=== PATIENT | female | born 1935 | race Caucasian/White ===

== ENCOUNTER 2017-02-16 23:05 | Inpatient (IN) | payer OTHER ==
[~2017-02-16] VITALS: Ht 172.7 cm; Wt 56.7 kg
--- NOTE | ~2017-02-16 | H ---
[facility] [place] [address] HISTORY AND PHYSICAL Name: TANO MORALES Room #: 411-P [facility]..#: [id number] Admission: 02/17/17 Attend Phys: Kee Mcdowell MD Discharge: Date of : 31 Report #: [id number] THIS REPORT FOR: //name// CC: Luis Mcdowell DATE OF SERVICE: 02/17/2017 CHIEF COMPLAINT: Fall and weakness. HISTORY OF PRESENT ILLNESS: The patient is an 81-year-old female who presented to the emergency room in the middle of the night with unwitnessed fall at her assisted living facility and apparently she had fell some time earlier yesterday, but the events are really unclear. The staff did not witness this, but the patient remember and then falling to the ground. She was then complaining of pain in her legs and inability to walk. She was brought to the emergency room late last night. PAST MEDICAL HISTORY: Senile dementia, history of a pacemaker, and B12 deficiency. PAST SURGICAL HISTORY: Cholecystectomy and hysterectomy. FAMILY HISTORY: Noncontributory. SOCIAL HISTORY: No chronic alcohol or tobacco use. ALLERGIES: CODEINE. MEDICATIONS: None. REVIEW OF SYSTEMS: She denies headache, chest pain, shortness of breath, abdominal pain, nausea, vomiting, diarrhea, constipation, dysuria, or syncope. OBJECTIVE: VITAL SIGNS: Temperature 36.7, pulse 90, respirations 18, and blood pressure 136/52. GENERAL: She is awake and alert, lying in bed, in no distress. HEAD AND NECK: Unremarkable. LUNGS: Clear. HEART: Regular. ABDOMEN: Soft, normoactive bowel sounds. EXTREMITIES: No edema. NEUROLOGIC: Global strength 4/[address] of the pelvis reveals a fracture of the inferior pubic ramus on the left, [facility] [address] [place] [address] HISTORY AND PHYSICAL Name: TANO MORALES Room #: 411-P [facility].#: [id number] Admission: 02/17/17 Attend Phys: Kee Mcdowell MD Discharge: Date of : 31 Report #: [id number] there appears to be a chronic L4 vertebral compression fracture. ASSESSMENT: 1. Acute left ramus pelvic fracture. 2. Chronic L4 vertebral compression fracture. 3. Senile dementia of Alzheimer's type. 4. Gait disturbance. 5. Senile debility. PLAN: She is admitted for pain control and we will begin physical therapy, Lovenox DVT prophylaxis until she is mobile. Social work to look into [facility] option. <ELECTRONICALLY SIGNED> By: Huber Hickman MD 02/18/17 [id number] [id number] Huber Hickman MD /nt
--- NOTE | ~2017-02-16 | D ---
[facility] [place] [address] DISCHARGE SUMMARY Name: TANO MORALES Room #: 411-P [facility]#: [id number] Admission: 02/17/17 Attend Phys: Kee Mcdowell MD Discharge: 02/20/17 Date of : 31 Report #: [id number] THIS REPORT FOR: //name// CC: Luis Mcdowell FINAL DIAGNOSES: 1. Pelvic fracture. 2. Senile dementia. HOSPITAL COURSE: The patient was admitted from home with a fall. X-ray studies revealed a pelvic fracture. She was treated conservatively. She is pleasantly confused at her baseline during her stay. Social work managed with her family appropriate placement as she was not able to return to her assisted living facility due to confusion. She participated with physical therapy, medically she had no other complications. PHYSICAL EXAMINATION: GENERAL: On the day of discharge, she was awake and alert, in no distress. VITAL SIGNS: Stable. LUNGS: Clear. HEART: Regular. ABDOMEN: Soft, normoactive bowel sounds. EXTREMITIES: No edema. DISPOSITION: Be transferred to [facility]. Follow up with Dr. Frias in 6 weeks. Diet and activity as tolerated. PT, OT, medicines are Tylenol and tramadol. <ELECTRONICALLY SIGNED> By: Huber Hickman MD 02/21/17 1018 [id number] Huber Hickman MD /juany
[~2017-02-16 23:05] MED LIST: ADULT LOW DOSE81 MG PO; ARICEPT 5 MG TAB5 MG PO; B12INJ IM; CALCIUM 500 +1 EAC5 PO; CALCIUM500 MG PO; GLUCOSAMIN-CHO1 EACH PO; GLUCOSAMINE1000 MG PO; LOVASTAT40; LOVASTAT40 PO; NORCO 5-325 TA1 EACH PO; OMEPRAZOLE 20 M20 M1 PO; ONDANSETRON HCL4 M2 PO; TYLENOL EXTRA500 MG PO; VITAMIN D-32000 UNIT PO; VITAMINC500 PO; XANAX 0.25 MG0.25 MG PO; ZOFRAN ODT4 MG PO
[2017-02-16 23:15] VITALS: BP 104/59
[2017-02-17 03:14] VITALS: BP 140/71
[2017-02-17 07:45] VITALS: BP 136/52
[2017-02-17 19:41] VITALS: BP 109/52
[2017-02-18 04:28] VITALS: BP 118/74
[2017-02-18 05:31] LABS: HEMATOCRIT 38.3 % (37.0-47.0); MCH 31.1 pg (26.0-34.0); MCHC 33.9 g/dL (28.0-37.0); MCV 91.9 fL (80.0-100.0); RBC 4.17 mil/uL (4.20-5.00); RDW 13.7 % (10.5-14.5); WBC 5.3 thou/uL (4.0-11.0)
[2017-02-18 05:43] LABS: CALCIUM 8.8 mg/dL (8.5-10.1); CREATININE 0.6 mg/dL (0.6-1.0); POTASSIUM 3.9 mmol/L (3.5-5.1)
[2017-02-18 20:07] VITALS: BP 116/60
[2017-02-19 05:40] VITALS: BP 128/59
[2017-02-19 08:23] VITALS: BP 117/68
[2017-02-19 16:00] VITALS: BP 124/52
[2017-02-19 20:07] VITALS: BP 116/46
[2017-02-20 04:29] VITALS: BP 121/70
[2017-02-20 08:12] VITALS: BP 121/66
[2017-02-20] MEDS ORDERED: TRAMADOL 50 MG50 MG PO (10:09)
[2017-02-20] MEDS ORDERED: ACETAMINOPHEN325 M1 PO (10:10)
== END 2017-02-20 11:56 | DRG 536 ==
LOC: ER 23:05 → 4N 02-17 02:37 → EROBS 02-17 02:37 → 4N 02-17 03:16
PROVIDERS: Internal Medicine Geriatric Medicine
DX: S32.592A Other specified fracture of left pubis, initial encounter for closed fracture (principal); G30.1 Alzheimer's disease with late onset; F02.80 Dementia in other diseases classified elsewhere, unspecified severity, without behavioral disturbance, psychotic disturbance, mood disturbance, and anxiety; R26.9 Unspecified abnormalities of gait and mobility; W19.XXXA Unspecified fall, initial encounter; E78.5 Hyperlipidemia, unspecified; F41.9 Anxiety disorder, unspecified; I49.5 Sick sinus syndrome; K59.00 Constipation, unspecified; Y93.89 Activity, other specified; Y92.89 Other specified places as the place of occurrence of the external cause; Z88.8 Allergy status to other drugs, medicaments and biological substances; Z95.0 Presence of cardiac pacemaker; Z90.49 Acquired absence of other specified parts of digestive tract; Z90.710 Acquired absence of both cervix and uterus; Y99.8 Other external cause status; Z86.711 Personal history of pulmonary embolism

== ENCOUNTER → 2019-09-17 | Outpatient (CLI) | payer OTHER ==
[~2019-09-17] MED LIST changes: +ACETAMINOPHEN325 M1 PO; +TRAMADOL 50 MG50 MG PO
== END ==
LOC: SJCVC 14:05
DX: R94.31 Abnormal electrocardiogram [ECG] [EKG] (principal); I45.9 Conduction disorder, unspecified; I49.5 Sick sinus syndrome; E78.5 Hyperlipidemia, unspecified; Z95.0 Presence of cardiac pacemaker

== ENCOUNTER → 2020-08-15 | Outpatient (CLI) | payer OTHER | LOC: SJCVC 14:03 | PROVIDERS: ATTEND Internal Medicine | DX: I44.0 Atrioventricular block, first degree (principal); I45.9 Conduction disorder, unspecified; E78.5 Hyperlipidemia, unspecified; F03.90 Unspecified dementia, unspecified severity, without behavioral disturbance, psychotic disturbance, mood disturbance, and anxiety; Z79.82 Long term (current) use of aspirin; Z79.899 Other long term (current) drug therapy; Z95.0 Presence of cardiac pacemaker ==